=== PATIENT | female | born 1970 | race American Indian/Alaskan Native ===

== ENCOUNTER 2021-04-24 08:44 | Observation (INO) | payer MEDICARE ==
--- NOTE | 2021-04-24 09:26 | Event Note ---
ED Screening Note Date of service: 04/24/21 Time: 09:24 ED Screening Note: Patient comes in for missing Dialysis on . This initial assessment/diagnostic orders/clinical plan/treatment(s) is/are subject to change based on patients health status, clinical progression and re- assessment by fellow clinical providers in the ED. Further treatment and workup at subsequent clinical providers discretion. Patient/guardian urged not to elope from the ED as their condition may be serious if not clinically assessed and managed. Initial orders include:
[2021-04-24 10:43] LABS: Basophils # (Auto) 0.1 K/mm3 (0.0-0.1); Basophils % (Auto) 0.7 % (0.0-1.8); Eosinophils # (Auto) 0.6 K/mm3 (0.0-0.4); Eosinophils % (Auto) 7.6 % (0.0-4.3); Hematocrit 30.1 % (30.3-42.9); Hemoglobin 9.7 gm/dl (10.1-14.3); Lymphocytes # (Auto) 0.8 K/mm3 (1.2-5.4); Lymphocytes % (Auto) 10.4 % (13.4-35.0); Mean Corpuscular HGB Conc 32 % (30-34); Mean Corpuscular Volume 91 fl (79-97); Monocytes # (Auto) 0.7 K/mm3 (0.0-0.8); Monocytes % (Auto) 9.1 % (0.0-7.3); Platelet Count 201 K/mm3 (140-440); Red Blood Count 3.32 M/mm3 (3.65-5.03); Red Cell Distribution Width 16.3 % (13.2-15.2)
[2021-04-24 11:06] LABS: Albumin 3.3 g/dL (3.9-5)
--- NOTE | 2021-04-24 11:42 | Emergency Department Report ---
ED General Adult HPI - General Chief complaint: Recheck/Abnormal Lab/Rx Stated complaint: NEEDS DIALYSIS Time Seen by Provider: 04/24/21 11:16 Source: patient Mode of arrival: Ambulatory Limitations: No Limitations - History of Present Illness Initial comments: Patient is a 51-year-old female presents emergency room stating that she needs dialysis. She reports that she was last dialyzed in [place] on 04/19/21. Patient reports that her dialysis clinic was supposed to aid her in having dialysis in [place] but states that there were some issues. She reports that she is here for 2 weeks visiting her daughter. She denies any symptoms at all. She denies any chest pain, shortness of breath, leg swelling. Allergy to loratadine. - Related Data Allergies Allergy/AdvReac Type Severity Reaction Status Date / Time loratadine AdvReac Vomiting Verified 04/24/21 08:54 ED Review of Systems ROS: Stated complaint: NEEDS DIALYSIS Other details as noted in HPI Comment: All other systems reviewed and negative ED Physical Exam - General Limitations: No Limitations General appearance: alert, in no apparent distress - Head Head exam: Present: atraumatic, normocephalic - Eye Eye exam: Present: normal appearance - ENT ENT exam: Present: mucous membranes moist - Respiratory Respiratory exam: Present: normal lung sounds bilaterally. Absent: respiratory distress, wheezes, rales, rhonchi, stridor, chest wall tenderness, accessory muscle use, decreased breath sounds, prolonged expiratory - Cardiovascular Cardiovascular Exam: Present: regular rate, normal rhythm, normal heart sounds. Absent: systolic murmur, diastolic murmur, rubs, gallop - Neurological Exam Neurological exam: Present: alert, oriented X3 - Psychiatric Psychiatric exam: Present: normal affect, normal mood - Skin Skin exam: Present: warm, dry, intact ED Course Vital Signs 04/24/21 04/24/21 04/24/21 08:55 16:30 16:45 Temperature 98.2 F 98.2 F Pulse Rate 65 61 61 Respiratory 18 18 Rate Blood Pressure 187/74 156/82 161/85 O2 Sat by Pulse 100 Oximetry O2 Sat by Pulse 100 Oximetry [ Throughout] 04/24/21 04/24/21 17:00 17:15 Temperature Pulse Rate 61 63 Respiratory Rate Blood Pressure 165/87 171/92 O2 Sat by Pulse Oximetry O2 Sat by Pulse Oximetry [ Throughout] - Consultations Consultation #1: 12/14/21 11:[address] Puentes, nephrology who will consult on patient, will dialyze patient and likely discharge after Spoke to Dr. Mcgee, hospitalist will accept and resume care of patient, will admit to hospitalist service ED Medical Decision Making - Lab Data Result diagrams: 04/24/21 10:12 04/24/21 10:12 Lab Results 04/24/21 04/24/21 Range/Units 10:12 10:12 WBC 7.2 (4.5-11.0) K/mm3 RBC 3.32 L (3.65-5.03) M/mm3 Hgb 9.7 L (10.1-14.3) gm/dl Hct 30.1 L (30.3-42.9) % MCV 91 (79-97) fl MCH 29 (28-32) pg MCHC 32 (30-34) % RDW 16.3 H (13.2-15.2) % Plt Count 201 (140-440) K/mm3 Lymph % (Auto) 10.4 L (13.4-35.0) % [place] % (Auto) 9.1 H (0.0-7.3) % Eos % (Auto) 7.6 H (0.0-4.3) % Baso % (Auto) 0.7 (0.0-1.8) % Lymph # (Auto) 0.8 L (1.2-5.4) K/mm3 [place] # (Auto) 0.7 (0.0-0.8) K/mm3 Eos # (Auto) 0.6 H (0.0-0.4) K/mm3 Baso # (Auto) 0.1 (0.0-0.1) K/mm3 Seg Neutrophils % 72.2 H (40.0-70.0) % Seg Neutrophils # 5.2 (1.8-7.7) K/mm3 Sodium 141 (137-145) mmol/L Potassium 6.4 H* (3.6-5.0) mmol/L Chloride 103.3 (98-107) mmol/L Carbon Dioxide 24 (22-30) mmol/L Anion Gap 20 mmol/L BUN 101 H (7-17) mg/dL Creatinine 9.2 H (0.6-1.2) mg/dL Estimated GFR 5 ml/min BUN/Creatinine Ratio 11 % Glucose 109 H (65-100) mg/dL Calcium 8.0 L (8.4-10.2) mg/dL Total Bilirubin 0.40 (0.1-1.2) mg/dL AST 18 (5-40) units/L ALT 13 (7-56) units/L Alkaline Phosphatase 107 (35-129) units/L Total Protein 7.8 (6.3-8.2) g/dL Albumin 3.3 L (3.9-5) g/dL Albumin/Globulin Ratio 0.7 % - EKG Data EKG shows normal: sinus rhythm, axis, intervals, QRS complexes Rate: normal - EKG Data 04/24/21 15:42 Nonspecific T wave inversion in V5 and V6 No peaked T waves No STEMI Left atrial enlargement - Medical Decision Making Patient is a 51-year-old female presents emergency room stating that she needs dialysis. She reports that she was last dialyzed in [place] on 04/19/21. Patient reports that her dialysis clinic was supposed to aid her in having dialysis in [place] but states that there were some issues. She reports that she is here for 2 weeks visiting her daughter. She denies any symptoms at all. She denies any chest pain, shortness of breath, leg swelling. Allergy to lorat adine. Initial vitals with elevated blood pressure, otherwise stable. Lab significant for renal dysfunction with hyperkalemia, EKG is stable. She has no clinical signs of fluid overload. Spoke to Dr. Puentes, nephrology who will consult on patient, will dialyze patient and likely discharge after. Spoke to Dr. Mcgee, hospitalist will accept and resume care of patient, will admit to hospitalist service. Discussed findings with patient who is agreeable with plan. Critical care attestation.: If time is entered above; I have spent that time in minutes in the direct care of this critically ill patient, excluding procedure time. ED Disposition Clinical Impression: ESRD (end stage renal disease), Hyperkalemia Disposition: 02 [facility]ORT TERM HOSPITAL Is pt being admited?: Yes Does the pt Need Aspirin: No Condition: Stable Time of Disposition: 11:42
--- NOTE | 2021-04-24 13:22 | Consultation ---
History of Present Illness - Reason for Consult Consult date: 04/24/21 end stage renal disease - History of Present Illness patint with ESRD on DH every TTS, she missed the last 2 treatment and came to the ER. Here she was found to have elevated K and renal consult ws requested for management of HD Past History Past Medical History: ESRD Medications and Allergies Allergies Allergy/AdvReac Type Severity Reaction Status Date / Time loratadine AdvReac Vomiting Verified 04/24/21 08:54 Review of Systems All systems: negative (weakness) Exam - Vital Signs Vital signs: Vital Signs Temp Pulse Resp BP Pulse Ox 98.2 F 65 18 187/74 100 04/24/21 08:55 04/24/21 08:55 04/24/21 08:55 04/24/21 08:55 04/24/21 08:55 Results - Lab Results 04/24/21 10:12 04/24/21 10:12 Most recent lab results Calcium 8.0 mg/dL (8.4-10.2) L 04/24/21 10:12 Assessment and Plan ESRD on HD HTN Anemia in CKD patient was consented for HD HD today for clearance and volume removal will assess HD needs daily renally dose meds strict I&O
[2021-04-24 14:46] LABS: Hepatitis C Virus Antibody Non-Reactive (NonReactive)
[2021-04-24 15:09] LABS: Hepatitis B Surface Antigen Nonreactive (Negative)
--- NOTE | 2021-04-24 16:33 | Consultation ---
History of Present Illness - Reason for Consult Consult date: 04/24/21 end stage renal disease - History of Present Illness This is a 51 year old female who presenting to the E.R requesting hemodialysis as she did not have an outpatient hemodialysis clinic arrange prior to leaving [place] to come to [place] to visit her daughter for [place]. She states she will return back to [place] the day after Alejandrina. Pertinent labs revealed and elevated potassium level of 6.4. States her last dialysis was on of last week. She has a left AVF. Reports being on dialysis since 2018. We are being consulted for management of her ESRD. Past History Past Medical History: ESRD, hypertension Past Surgical History: Other (Left AVF placement) Social history: no significant social history Family history: no significant family history Medications and Allergies Allergies Allergy/AdvReac Type Severity Reaction Status Date / Time loratadine AdvReac Vomiting Verified 04/24/21 08:54 Review of Systems Constitutional: no weight loss, no weight gain, no chills, no sweats, no night sweats, no anorexia, no fatigue, no weakness, no malaise Ears, nose, mouth and throat: no ear pain, no ear discharge, no tinnitis, no decreased hearing, no nose pain, no nasal congestion Cardiovascular: no chest pain, no orthopnea, no palpitations, no rapid/irregular heart beat, no edema, no syncope Respiratory: no cough, no cough with sputum, no excessive sputum, no hemoptysis, no shortness of breath, no dyspnea on exertion Gastrointestinal: no abdominal pain, no nausea, no vomiting, no diarrhea, no constipation, no change in bowel habits Genitourinary Female: no dysmenorrhea, no pelvic pain, no flank pain, no menorrhagia, no dysuria Rectal: no bleeding Musculoskeletal: no neck stiffness, no neck pain, no shooting arm pain, no arm numbness/tingling, no low back pain Integumentary: no rash, no pruritis, no redness, no sores, no wounds Neurological: no paralysis, no weakness, no parathesias, no numbness Psychiatric: no anxiety, no memory loss, no change in sleep habits, no sleep disturbances, no insomnia, no hypersomnia Endocrine: no cold intolerance, no heat intolerance, no polyphagia, no excessive thirst, no polydipsia Exam - Vital Signs Vital signs: Vital Signs Temp Pulse Resp BP Pulse Ox 98.2 F 65 18 187/74 100 04/24/21 08:55 04/24/21 08:55 04/24/21 08:55 04/24/21 08:55 04/24/21 08:55 - General Appearance General appearance: well-developed, appears stated age EENT: ATNC, PERRL, hearing intact, vision intact Neck: Present: neck supple Respiratory: Decreased Breath Sounds Heart: S1S2 Gastrointestinal: Present: normoactive bowel sounds Integumentary: warm and dry Neurologic: alert and oriented x3 Musculoskeletal: Present: other (No edema) Results - Lab Results 04/24/21 10:12 04/24/21 10:12 Most recent lab results Calcium 8.0 mg/dL (8.4-10.2) L 04/24/21 10:12 Assessment and Plan Assessment: End Stage Renal Disease Hypertension Anemia Hyperkalemia Plan: Hemodialysis today for UF and clearance Hyperkalemia- HD ordered for today. Low potassium diet. Fluid restriction of 1 liter per day Obtain dialy weights Monitor I/O's daily States will not pay out-of pocket cost she was told to pay at accepting HD clinic Patient will be returning back to [place] next week, the day after Alejandrina Can D/C home after HD today Plan of care reviewed by Dr. Triplett
[2021-04-24] MEDS ORDERED: METOCLOPRAMIDE 10 MG/2 ML INJ IV PRN (19:45)
[2021-04-24] MEDS ORDERED: HYDROmorphone 1 MG/1 ML INJ IV PRN (19:45)
[2021-04-24] MEDS ORDERED: ACETAMINOPHEN 325 MG TAB PO PRN (19:45)
[2021-04-24] MEDS ORDERED: ONDANSETRON 4 MG/2 ML INJ IV PRN (19:45)
[2021-04-24] MEDS ORDERED: oxyCODONE /ACETAMINOPHEN 5-325MG TAB PO PRN (19:45)
--- NOTE | 2021-04-24 19:58 | History and Physical Report ---
History of Present Illness Date of examination: 04/24/21 Date of admission: 04/24/21 11:42 Chief complaint: Shortness of breath for couple of days History of present illness: Patient is a 51-year-old female presents emergency room stating that she needs dialysis. She reports that she was last dialyzed in [place] on 04/19/21. Patient reports that her dialysis clinic was supposed to arrange for with having dialysis in [place] but states that there were some issues [facility]. She reports that she is here for 2 weeks visiting her daughter. She denies any symptoms at all. Some shortness of breath present. No chest pain. ED course Patient admitted for emergent hemodialysis and discharged the same day Patient's potassium was high Past History Past Medical History: ESRD, hypertension Past Surgical History: cholecystectomy, Other (, Abdominal wall cellulitis in the past) Social history: no significant social history, lives with family, smoking (From the age 18 to 24 years), full code Family history: hypertension Medications and Allergies Allergies Allergy/AdvReac Type Severity Reaction Status Date / Time loratadine AdvReac Vomiting Verified 04/24/21 08:54 Review of Systems All systems: negative Cardiovascular: shortness of breath Respiratory: dyspnea on exertion Exam - Constitutional Vitals: Temp Pulse Resp BP Pulse Ox 98.2 F 63 18 171/92 100 04/24/21 16:30 04/24/21 17:15 04/24/21 16:30 04/24/21 17:15 04/24/21 16:30 General appearance: Present: no acute distress, well-nourished - EENT Eyes: Present: PERRL ENT: hearing intact, clear oral mucosa - Neck Neck: Present: supple, normal ROM - Respiratory Respiratory effort: normal Respiratory: bilateral: CTA - Cardiovascular Heart rate: 78 Rhythm: regular Heart Sounds: Present: S1 & S2. Absent: rub, click - Extremities Extremities: pulses symmetrical, No edema Peripheral Pulses: within normal limits - Abdominal General gastrointestinal: Present: soft, non-tender, non-distended, normal bowel sounds Female genitourinary: Present: normal - Integumentary Integumentary: Present: clear, warm, dry - Musculoskeletal Musculoskeletal: gait normal, strength equal bilaterally - Psychiatric Psychiatric: appropriate mood/affect, intact judgment & insight - Neurologic Neurologic: CNII-XII intact, moves all extremities HEART Score - HEART Score History: Moderately suspicious Age: 45-65 Risk factors: 1-2 risk factors Troponin: < normal limit - Critical Actions Critical Actions: 0-3 pts:0.9-1.7%risk of adverse cardiac event.Candidate for discharge Results - Labs CBC & Chem 7: 04/24/21 10:12 04/24/21 10:12 Labs: Laboratory Last Values WBC 7.2 K/mm3 (4.5-11.0) 04/24/21 10:12 RBC 3.32 M/mm3 (3.65-5.03) L 04/24/21 10:12 Hgb 9.7 gm/dl (10.1-14.3) L 04/24/21 10:12 Hct 30.1 % (30.3-42.9) L 04/24/21 10:12 MCV 91 fl (79-97) 04/24/21 10:12 MCH 29 pg (28-32) 04/24/21 10:12 MCHC 32 % (30-34) 04/24/21 10:12 RDW 16.3 % (13.2-15.2) H 04/24/21 10:12 Plt Count 201 K/mm3 (140-440) 04/24/21 10:12 Lymph % (Auto) 10.4 % (13.4-35.0) L 04/24/21 10:12 [place] % (Auto) 9.1 % (0.0-7.3) H 04/24/21 10:12 Eos % (Auto) 7.6 % (0.0-4.3) H 04/24/21 10:12 Baso % (Auto) 0.7 % (0.0-1.8) 04/24/21 10:12 Lymph # (Auto) 0.8 K/mm3 (1.2-5.4) L 04/24/21 10:12 [place] # (Auto) 0.7 K/mm3 (0.0-0.8) 04/24/21 10:12 Eos # (Auto) 0.6 K/mm3 (0.0-0.4) H 04/24/21 10:12 Baso # (Auto) 0.1 K/mm3 (0.0-0.1) 04/24/21 10:12 Seg Neutrophils % 72.2 % (40.0-70.0) H 04/24/21 10:12 Seg Neutrophils # 5.2 K/mm3 (1.8-7.7) 04/24/21 10:12 Sodium 141 mmol/L (137-145) 04/24/21 10:12 Potassium 6.4 mmol/L (3.6-5.0) H* 04/24/21 10:12 Chloride 103.3 mmol/L (98-107) 04/24/21 10:12 Carbon Dioxide 24 mmol/L (22-30) 04/24/21 10:12 Anion Gap 20 mmol/L 04/24/21 10:12 BUN 101 mg/dL (7-17) H 04/24/21 10:12 Creatinine 9.2 mg/dL (0.6-1.2) H 04/24/21 10:12 Estimated GFR 5 ml/min 04/24/21 10:12 BUN/Creatinine Ratio 11 % 04/24/21 10:12 Glucose 109 mg/dL (65-100) H 04/24/21 10:12 Calcium 8.0 mg/dL (8.4-10.2) L 04/24/21 10:12 Total Bilirubin 0.40 mg/dL (0.1-1.2) 04/24/21 10:12 AST 18 units/L (5-40) 04/24/21 10:12 ALT 13 units/L (7-56) 04/24/21 10:12 Alkaline Phosphatase 107 units/L (35-129) 04/24/21 10:12 Total Protein 7.8 g/dL (6.3-8.2) 04/24/21 10:12 Albumin 3.3 g/dL (3.9-5) L 04/24/21 10:12 Albumin/Globulin Ratio 0.7 % 04/24/21 10:12 Hepatitis A IgM Ab Non-reactive (NonReactive) 04/24/21 13:49 Hep Bs Antigen Nonreactive (Negative) 04/24/21 13:49 Hep B Core IgM Ab Non-reactive (NonReactive) 04/24/21 13:49 Hepatitis C Antibody Non-reactive (NonReactive) 04/24/21 13:49 Assessment and Plan Advance Directives: Yes (Full code) VTE prophylaxis?: Chemical Plan of care discussed with patient/family: Yes - Patient Problems (1) Volume overload Current Visit: Yes Status: Acute Qualifiers: Hypervolemia type: unspecified Qualified Code(s): E87.70 - Fluid overload, unspecified Plan to address problem: Secondary to missed hemodialysis Needs emergent hemodialysis (2) Hyperkalemia Current Visit: Yes Status: Acute Plan to address problem: Emergent hemodialysis (3) ESRD (end stage renal disease) Current Visit: Yes Status: Chronic Plan to address problem: Emergent hemodialysis Patient making arrangements with the [facility] for dialysis till (4) DVT prophylaxis Current Visit: Yes Status: Acute Plan to address problem: on heparin and GI prophylaxis
--- NOTE | 2021-04-24 20:09 | Discharge Summary ---
Providers - Providers Date of Admission: 04/24/21 11:42 Date of discharge: 04/24/21 Attending physician: YOSVANY CASTRO 04/24/21 11:40 Consult to Physician [CONS] Stat Comment: Consulting Provider: MAIKEL KNOX Physician Instructions: Reason For Exam: ESRD, hyperkalemia Primary care physician: [employer] Hospitalization Condition: Stable Hospital course: Patient is a 51-year-old female presents emergency room stating that she needs dialysis. She reports that she was last dialyzed in [place] on 04/19/21. Patient reports that her dialysis clinic was supposed to arrange for with having dialysis in [place] but states that there were some issues [facility]. She reports that she is here for 2 weeks visiting her daughter. She denies any symptoms at all. Some shortness of breath present. No chest pain. ED course Patient admitted for emergent hemodialysis and discharged the same day Patient's potassium was high Assessment and Plan Advance Directives: Yes (Full code) VTE prophylaxis?: Chemical Plan of care discussed with patient/family: Yes - Patient Problems (1) Volume overload Current Visit: Yes Status: Acute Qualifiers: Hypervolemia type: unspecified Qualified Code(s): E87.70 - Fluid overload, unspecified Plan to address problem: Secondary to missed hemodialysis Had emergent hemodialysis (2) Hyperkalemia Current Visit: Yes Status: Acute Plan to address problem: Emergent hemodialysis Hyperkalemia resolved (3) ESRD (end stage renal disease) Current Visit: Yes Status: Chronic Plan to address problem: Emergent hemodialysis Patient making arrangements with the [facility] for dialysis till (4) DVT prophylaxis Current Visit: Yes Status: Acute Plan to address problem: on heparin and GI prophylaxis Disposition: 01 HOME / SELF CARE / HOMELESS Final Discharge Diagnosis (Prints w/discharge instructions): Volume overload. End-stage renal disease on hemodialysis. Hyperkalemia - Discharge Diagnoses (1) Volume overload Status: Acute Qualifiers: Hypervolemia type: unspecified Qualified Code(s): E87.70 - Fluid overload, unspecified (2) Hyperkalemia Status: Acute (3) ESRD (end stage renal disease) Status: Chronic (4) DVT prophylaxis Status: Acute Core Measure Documentation - Palliative Care Palliative Care/ Comfort Measures: Not Applicable - Core Measures Any of the following diagnoses?: none Exam - Constitutional Vitals: Temp Pulse Resp BP Pulse Ox 98.2 F 63 18 171/92 100 04/24/21 16:30 04/24/21 17:15 04/24/21 16:30 04/24/21 17:15 04/24/21 16:30 General appearance: Present: no acute distress, well-nourished - EENT Eyes: Present: PERRL ENT: hearing intact, clear oral mucosa - Neck Neck: Present: supple, normal ROM - Respiratory Respiratory effort: normal Respiratory: bilateral: CTA - Cardiovascular Heart rate: 78 Rhythm: regular Heart Sounds: Present: S1 & S2. Absent: rub, click - Extremities Extremities: pulses symmetrical, No edema Peripheral Pulses: within normal limits - Abdominal General gastrointestinal: Present: soft, non-tender, non-distended, normal bowel sounds Female genitourinary: Present: normal - Integumentary Integumentary: Present: clear, warm, dry - Musculoskeletal Musculoskeletal: gait normal, strength equal bilaterally - Psychiatric Psychiatric: appropriate mood/affect, intact judgment & insight - Neurologic Neurologic: CNII-XII intact, moves all extremities Plan Activity: no restrictions Diet: renal Follow up with: ADIEL WHITE MD [Primary Care Provider] - 3-5 Days ELISABETH HUMPHREY MD [Staff Physician] - 7 Days
[2021-04-24 20:23] VITALS: BP 194/98
[2021-04-24] MEDS ORDERED: HEPARIN 5,000 UNIT/1 ML VIAL SUB-Q SCH (22:00)
[2021-04-24] MEDS ORDERED: FAMOTIDINE 10 MG TAB PO SCH (22:00)
--- NOTE | 2021-04-25 12:22 | Electrocardiograph Report ---
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
== END 2021-04-24 21:15 | disposition home or self-care (01) ==
LOC: ED 08:44 → 3A 11:42
PROVIDERS: ADMIT Internal Medicine; ATTEND Internal Medicine
DX: E87.70 Fluid overload, unspecified (principal); I12.0 Hypertensive chronic kidney disease with stage 5 chronic kidney disease or end stage renal disease; N18.6 End stage renal disease; D63.1 Anemia in chronic kidney disease; E87.5 Hyperkalemia; Z90.49 Acquired absence of other specified parts of digestive tract; Z99.2 Dependence on renal dialysis; Z79.899 Other long term (current) drug therapy; Z98.890 Other specified postprocedural states
CPT/HCPCS: 36415; 80053; 80074; 85025; 93005; 99284; G0257; G0378

== ENCOUNTER 2021-04-26 09:15 | Emergency (ER) | payer MEDICARE ==
--- NOTE | 2021-04-26 09:43 | Event Note ---
ED Screening Note ED Screening Note: here on Norma for HD new to area refused admit Norma Antony full [place] required 20% upfront she could not pay Here for HD eval This initial assessment/diagnostic orders/clinical plan/treatment(s) is/are subject to change based on patients health status, clinical progression and re- assessment by fellow clinical providers in the ED. Further treatment and workup at subsequent clinical providers discretion. Patient/guardian urged not to elope from the ED as their condition may be serious if not clinically assessed and managed. Initial orders include: labs ordered Vital Signs 04/26/21 04/26/21 09:20 09:22 Temperature 97.3 F L Pulse Rate 63 Respiratory 16 Rate Blood Pressure 167/79 O2 Sat by Pulse 100 Oximetry
--- NOTE | 2021-04-26 10:20 | Emergency Department Report ---
ED General Adult HPI - General Chief complaint: Medical Clearance Stated complaint: DIALYSIS Time Seen by Provider: 04/26/21 09:43 Source: patient Mode of arrival: Ambulatory Limitations: No Limitations - History of Present Illness Initial comments: Patient presents for dialysis. She has a long history of end-stage renal disease. She is normally dialyzed on Friday, , and Friday. She is now here visiting her daughter and grandkids through the holidays. 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 Apparently they have arranged her dialysis at a facility that charges 20% upfront. She states frankly that she cannot afford that. She will not pay for that when it should be covered. Patient was here Friday, dialyzed, and left. She is back here today so she can maintain her schedule. She has no symptoms. She has no chest pain or shortness of breath. She has had no vomiting or diarrhea. She does not feel dizzy or lightheaded. She states that she is here because she is supposed to be dialyzed on . - Related Data Home Medications Medication Instructions Recorded Confirmed Last Taken Atorvastatin [Lipitor Tab] 80 mg PO QHS 04/26/21 04/26/21 04/25/21 21:00 Furosemide [Lasix TAB] 80 mg PO BID 04/26/21 04/26/21 04/26/21 08:00 Ketorolac [Toradol] 10 mg PO Q6H PRN 04/26/21 04/26/21 04/26/21 08:30 Losartan [Cozaar] 50 mg PO HS 04/26/21 04/26/21 04/25/21 21:00 Allergies Allergy/AdvReac Type Severity Reaction Status Date / Time loratadine AdvReac Vomiting Verified 04/24/21 08:54 LORTAB Allergy Nausea Uncoded 04/26/21 09:18 ED Review of Systems ROS: Stated complaint: DIALYSIS Other details as noted in HPI Comment: All other systems reviewed and negative Constitutional: denies: fever Eyes: denies: vision change ENT: denies: throat pain Respiratory: denies: cough Cardiovascular: denies: chest pain Endocrine: denies: unexplained weight loss Gastrointestinal: denies: abdominal pain Musculoskeletal: denies: back pain Skin: denies: rash Neurological: denies: headache Hematological/Lymphatic: denies: easy bruising ED Past Medical Hx - Past Medical History Hx Hypertension: Yes Hx Renal Disease: Yes (On dialysis) - Surgical History Additional Surgical History: AV fistula - Family History Family history: hypertension - Medications Home Medications: Home Medications Medication Instructions Recorded Confirmed Last Taken Type Atorvastatin [Lipitor Tab] 80 mg PO QHS 04/26/21 04/26/21 04/25/21 21:00 History Furosemide [Lasix TAB] 80 mg PO BID 04/26/21 04/26/21 04/26/21 08:00 History Ketorolac [Toradol] 10 mg PO Q6H PRN 04/26/21 04/26/21 04/26/21 08:30 History Losartan [Cozaar] 50 mg PO HS 04/26/21 04/26/21 04/25/21 21:00 History ED Physical Exam - General Limitations: No Limitations, Other (Pulse ox noted and normal) General appearance: alert, in no apparent distress - Head Head exam: Present: atraumatic, normocephalic, normal inspection - Eye Eye exam: Present: normal appearance, EOMI. Absent: scleral icterus - ENT ENT exam: Present: normal orophraynx, normal external ear exam - Neck Neck exam: Present: normal inspection. Absent: meningismus - Respiratory Respiratory exam: Present: normal lung sounds bilaterally. Absent: respiratory distress - Cardiovascular Cardiovascular Exam: Present: regular rate, normal rhythm - GI/Abdominal GI/Abdominal exam: Present: soft. Absent: tenderness - Extremities Exam Extremities exam: Present: normal capillary refill. Absent: calf tenderness - Back Exam Back exam: Absent: CVA tenderness (R), CVA tenderness (L) - Neurological Exam Neurological exam: Present: alert, oriented X3, normal gait. Absent: motor sensory deficit - Psychiatric Psychiatric exam: Present: normal affect, normal mood - Skin Skin exam: Present: warm, dry ED Course Vital Signs 04/26/21 04/26/21 04/26/21 09:20 09:22 10:20 Temperature 97.3 F L 98.5 F Pulse Rate 63 63 Respiratory 16 16 Rate Blood Pressure 167/79 179/94 O2 Sat by Pulse 100 100 Oximetry 04/26/21 11:00 Temperature Pulse Rate Respiratory 16 Rate Blood Pressure O2 Sat by Pulse 99 Oximetry - Reevaluation(s) Reevaluation #1: 12/16/21 10:20 Labs have been ordered. Old records reviewed. Reevaluation #2: 04/26/21 11:30 Labs are noted and the patient was discharged ED Medical Decision Making - Lab Data Result diagrams: 04/26/21 09:48 04/26/21 09:48 Rhythm strip: Normal sinus rhythm without ectopy. Monitor observe 10 seconds. - Medical Decision Making Patient presents secondary to dialysis and possible need for dialysis. Patient has end-stage renal disease. She was concerned because she was last dialyzed on Friday. She is asymptomatic. Electrolytes have been reviewed. Kidney function has been noted. This is been discussed with the patient. There is no indication for emergent dialysis. She has no evidence of pulmonary edema. There is no evidence of significant hyperkalemia. She was treated symptomatically and referred for outpatient evaluation and follow-up. Critical Care Time: No Critical care attestation.: If time is entered above; I have spent that time in minutes in the direct care of this critically ill patient, excluding procedure time. ED Disposition Clinical Impression: ESRD (end stage renal disease) on dialysis Disposition: 01 HOME / SELF CARE / HOMELESS Is pt being admited?: No Condition: Stable Additional Instructions: Follow-up as discussed. Continue home medication. Return for problems. Referrals: PRIMARY CARE, [Primary Care Provider] - 3-5 Days
[2021-04-26 10:27] LABS: Hemoglobin 9.4 gm/dl (10.1-14.3); Mean Corpuscular HGB Conc 31 % (30-34); Mean Corpuscular Volume 91 fl (79-97); Platelet Count 198 K/mm3 (140-440); Red Cell Distribution Width 16.2 % (13.2-15.2)
[2021-04-26 10:40] LABS: Calcium 7.7 mg/dL (8.4-10.2)
[2021-04-26] MEDS ORDERED: SODIUM POLYSTYRENE 15 GM/60 ML ORAL LIQD PO ONE (11:29)
[2021-04-26 11:37] VITALS: BP 183/78
== END 2021-04-26 11:54 | disposition home or self-care (01) ==
LOC: ED 09:15
DX: I12.9 Hypertensive chronic kidney disease with stage 1 through stage 4 chronic kidney disease, or unspecified chronic kidney disease (principal); N18.6 End stage renal disease; Z88.8 Allergy status to other drugs, medicaments and biological substances
CPT/HCPCS: 36415; 80048; 83735; 83880; 84100; 85027; 99283